=== PATIENT | female | born 1930 | race Caucasian/White ===

== ENCOUNTER 2018-04-16 17:24 | Inpatient (IN) | payer MEDICARE, BC ==
[~2018-04-16] VITALS: Ht 154.9 cm; Wt 53.8 kg
[2018-04-16] MEDS ORDERED: PRAV40TA2 PO (17:55)
[2018-04-16] MEDS ORDERED: GUAI473L PO (17:55)
[2018-04-16] MEDS ORDERED: HYDR12.58 PO (17:55)
[2018-04-16] MEDS ORDERED: DOCU100C33 PO (17:55)
[2018-04-16] MEDS ORDERED: LEVO100T5 PO (17:55)
[2018-04-16] MEDS ORDERED: ALLO300T PO (17:55)
[2018-04-16] MEDS ORDERED: MAGN400C PO (17:55)
[2018-04-16] MEDS ORDERED: LISI-167 PO (17:55)
[2018-04-16] MEDS ORDERED: SODIUM CHLORIDE 0.9% 1,000ML IVBOLUS ONE (18:30)
[2018-04-16] MEDS ORDERED: SODIUM CHLORIDE FLUSH 10ML SYR IVF ONE (18:30)
[2018-04-16 18:40] LABS: ALANINE AMINOTRANSFERASE 29 U/L (12-78); ALBUMIN 2.5 g/dL (3.4-5.0); ANION GAP 8 mmol/L (5-15); CALCIUM 7.8 mg/dL (8.5-10.1); CHLORIDE 104 mmol/L (98-107); CREATININE 0.86 mg/dL (0.55-1.02)
[2018-04-16 18:45] LABS: ALKALINE PHOSPHATASE 190 U/L (45-117); BILIRUBIN,TOTAL 0.6 mg/dL (0.2-1.0); MEAN CORPUSCULAR HEMOGLOBIN 33.5 pg (27.0-34.8); MEAN CORPUSCULAR HGB CONC 33.7 g/dL (32.4-35.8); MEAN CORPUSCULAR VOLUME 99.6 fL (80-100); MEAN PLATELET VOLUME 7.7 fL (7.4-10.4); PLATELET COUNT 333 x10^3/uL (130-400); RED CELL DISTRIBUTION WIDTH 21.4 % (9.6-15.2); TOTAL PROTEIN 5.6 g/dL (6.4-8.2); TROPONIN I 0.026 ng/mL (0.000-0.045)
[2018-04-16 19:11] LABS: ANISOCYTOSIS 1+; BASOPHILS # (AUTO) 0.01 x10^3/uL (0-0.1); BASOPHILS % (AUTO) 0 % (0-1); EOSINOPHILS # (AUTO) 0.06 x10^3/uL (0-0.4); EOSINOPHILS % (AUTO) 1 % (1-7); LYMPHOCYTES # (AUTO) 0.69 x10^3/uL (1-3.4); LYMPHOCYTES % (AUTO) 6 % (22-44); MD MORPH REVIEW ONLY; MONOCYTES # (AUTO) 1.15 x10^3/uL (0.2-0.8); MONOCYTES % (AUTO) 11 % (2-9); NEUTROPHILS # (AUTO) 8.97 x10^3/uL (1.8-6.8); NEUTROPHILS % (AUTO) 83 % (42-75)
[2018-04-16 19:12] LABS: POLYCHROMASIA 1+
[2018-04-16 19:14] LABS: OVALOCYTES 1+
[2018-04-16 19:17] LABS: <PLATELET ESTIMATE> ADEQUATE; <PLT MORPHOLOGY> NORMAL PLT MORPH
[2018-04-16 19:55] LABS: MICROSCOPIC INDICATED
[2018-04-16 20:33] LABS: CULTURE INDICATED? NO
[2018-04-16 20:46] VITALS: BP 168/90
[2018-04-16] MEDS ORDERED: ENOXAPARIN 40 MG/0.4 ML SQ SCH (21:30)
[2018-04-16] MEDS ORDERED: ONDANSETRON ODT 4 MG PO PRN (21:30)
[2018-04-16] MEDS ORDERED: hydrALAzine 20 MG/ML, 1ML IVPush PRN (21:30)
[2018-04-16] MEDS ORDERED: TEMAZEPAM 15 MG CAPSULE PO PRN (21:30)
[2018-04-16] MEDS: PRAVASTATIN 40 MG TABLET PO SCH (22:10)
[2018-04-16 23:17] LABS: HEMOGLOBIN A1C 5.4 % (4.2-6.3)
[2018-04-17] VITALS (8 sets, daily range): BP systolic 85–168; BP diastolic 54–81
[2018-04-17 00:45] LABS: TROPONIN I 0.029 ng/mL (0.000-0.045)
[2018-04-17 03:39] LABS: BASOPHILS # (AUTO) 0.04 x10^3/uL (0-0.1); BASOPHILS % (AUTO) 1 % (0-1); EOSINOPHILS # (AUTO) 0.16 x10^3/uL (0-0.4); EOSINOPHILS % (AUTO) 2 % (1-7); LYMPHOCYTES # (AUTO) 1.63 x10^3/uL (1-3.4); LYMPHOCYTES % (AUTO) 18 % (22-44); MD NO; MEAN CORPUSCULAR HEMOGLOBIN 32.8 pg (27.0-34.8); MEAN CORPUSCULAR HGB CONC 32.9 g/dL (32.4-35.8); MEAN CORPUSCULAR VOLUME 99.6 fL (80-100); MEAN PLATELET VOLUME 7.9 fL (7.4-10.4); MONOCYTES % (AUTO) 10 % (2-9); NEUTROPHILS # (AUTO) 6.58 x10^3/uL (1.8-6.8); NEUTROPHILS % (AUTO) 71 % (42-75); PLATELET COUNT 319 x10^3/uL (130-400); RED CELL DISTRIBUTION WIDTH 21.9 % (9.6-15.2)
[2018-04-17 03:49] LABS: ANION GAP 10 mmol/L (5-15); CALCIUM 7.8 mg/dL (8.5-10.1); CHLORIDE 106 mmol/L (98-107); CREATININE 0.78 mg/dL (0.55-1.02)
[2018-04-17 03:52] LABS: TROPONIN I 0.028 ng/mL (0.000-0.045)
[2018-04-17] MEDS: ACETAMINOPHEN 325 MG TABLET PO PRN ×2 (10:04→20:45)
[2018-04-17] MEDS: DOCUSATE 100 MG CAPSULE PO SCH ×2 (10:04→20:45)
[2018-04-17] MEDS: LEVOTHYROXINE 100 MCG TABLET PO SCH (10:04)
[2018-04-17] MEDS: ALLOPURINOL 300 MG TABLET PO SCH (10:04)
[2018-04-17] MEDS: MAGNESIUM OXIDE 400 MG TABLET PO SCH (10:04)
[2018-04-17] MEDS: HYDROCHLOROTHIAZIDE 12.5 MG CAPSULE PO SCH (10:05)
[2018-04-17 10:12] LABS: CLOSTRIDIUM DIFFICILE ANTIGEN NEGATIVE; CLOSTRIDIUM DIFFICILE TOXIN NEGATIVE (Negative)
[2018-04-17] MEDS ORDERED: NS + 20MEQ KCL 1,000 ML IV SCH (14:00)
[2018-04-17] MEDS ORDERED: GADOBUTROL 7.5 MMOL/7.5 ML PFS ONE (16:23)
[2018-04-17] MEDS: ENOXAPARIN 30 MG/0.3 ML SQ SCH (20:45)
[2018-04-17] MEDS: PRAVASTATIN 40 MG TABLET PO SCH (20:45)
[2018-04-18 00:20] VITALS: BP_SYST 185; BP_SYST 193; BP_DIAS 66; BP_DIAS 79
[2018-04-18 01:25] VITALS: BP_SYST 178; BP_SYST 180; BP_DIAS 64; BP_DIAS 66
[2018-04-18 08:01] VITALS: BP 163/68
[2018-04-18] MEDS: DOCUSATE 100 MG CAPSULE PO SCH ×2 (09:00→21:00)
[2018-04-18] MEDS: ALLOPURINOL 300 MG TABLET PO SCH (09:33)
[2018-04-18] MEDS: LEVOTHYROXINE 100 MCG TABLET PO SCH (09:33)
[2018-04-18] MEDS: LISINOPRIL 10 MG TABLET PO SCH (09:34)
[2018-04-18] MEDS: HYDROCHLOROTHIAZIDE 12.5 MG CAPSULE PO SCH (09:34)
[2018-04-18] MEDS: MAGNESIUM OXIDE 400 MG TABLET PO SCH (09:35)
[2018-04-18] MEDS: AMLODIPINE 5 MG TABLET PO SCH (09:35)
[2018-04-18] MEDS: ACETAMINOPHEN 325 MG TABLET PO PRN ×3 (09:47→21:09)
[2018-04-18 13:44] VITALS: BP 128/69
[2018-04-18 20:37] VITALS: BP 99/62
[2018-04-18] MEDS: PRAVASTATIN 40 MG TABLET PO SCH (21:09)
[2018-04-18] MEDS: ENOXAPARIN 30 MG/0.3 ML SQ SCH (21:10)
[2018-04-19 01:21] VITALS: BP 136/71
[2018-04-19 06:16] LABS: ANION GAP 8 mmol/L (5-15); CALCIUM 8.1 mg/dL (8.5-10.1); CHLORIDE 103 mmol/L (98-107); CREATININE 0.64 mg/dL (0.55-1.02)
[2018-04-19 07:00] VITALS: BP 130/74
[2018-04-19 08:36] VITALS: BP 175/78
[2018-04-19] MEDS: MAGNESIUM OXIDE 400 MG TABLET PO SCH (08:36)
[2018-04-19] MEDS: ALLOPURINOL 300 MG TABLET PO SCH (08:36)
[2018-04-19] MEDS: LEVOTHYROXINE 100 MCG TABLET PO SCH (08:36)
[2018-04-19] MEDS: AMLODIPINE 5 MG TABLET PO SCH (08:37)
[2018-04-19] MEDS: LISINOPRIL 10 MG TABLET PO SCH (08:37)
[2018-04-19] MEDS: DOCUSATE 100 MG CAPSULE PO SCH ×2 (08:37→08:53)
[2018-04-19] MEDS: HYDROCHLOROTHIAZIDE 12.5 MG CAPSULE PO SCH (08:37)
[2018-04-19 10:45] VITALS: BP 78/49
[2018-04-19 10:55] VITALS: BP 94/55
[2018-04-19] MEDS ORDERED: SODIUM CHLORIDE 0.9%, 500ML IVBOLUS ONE (11:00)
[2018-04-19 12:05] VITALS: BP 129/66
[2018-04-19] MEDS ORDERED: TRAM50TA2 PO (12:57)
== END 2018-04-19 14:37 | disposition home or self-care (01) | DRG 74 ==
LOC: EDBD 17:24 → ED 18:37 → EDIP 19:11 → 4EST 20:22 → DCLOUNGE 04-19 14:28
PROVIDERS: ADMIT Hospitalist; ATTEND Hospitalist
PROC: 0T9B70Z Drainage of Bladder with Drainage Device, Via Natural or Artificial Opening (ICD-10-PCS; principal; 2018-04-16)
DX: G90.9 Disorder of the autonomic nervous system, unspecified (principal); E44.0 Moderate protein-calorie malnutrition; I95.1 Orthostatic hypotension; I16.0 Hypertensive urgency; E78.00 Pure hypercholesterolemia, unspecified; E86.0 Dehydration; M10.9 Gout, unspecified; F03.90 Unspecified dementia, unspecified severity, without behavioral disturbance, psychotic disturbance, mood disturbance, and anxiety; I35.8 Other nonrheumatic aortic valve disorders; K59.00 Constipation, unspecified; Z66 Do not resuscitate; M51.34 Other intervertebral disc degeneration, thoracic region; W18.30XA Fall on same level, unspecified, initial encounter; Z86.73 Personal history of transient ischemic attack (TIA), and cerebral infarction without residual deficits; Z87.891 Personal history of nicotine dependence; Z68.22 Body mass index [BMI] 22.0-22.9, adult; Y93.89 Activity, other specified; Y92.89 Other specified places as the place of occurrence of the external cause; Y99.8 Other external cause status
CPT/HCPCS: 36415; 70450; 70553; 71045; 72072; 80048; 80053; 81001; 83036; 83605; 83735; 84484; 85025; 87040; 87324; 93005; 93306; 99285; A9585; G0378; J1650; J3480; J0360; J7030; J7040